=== PATIENT | male | born 1945 | race Two or more races ===

== ENCOUNTER 2022-11-24 15:33 | Inpatient (IN) | payer MEDICARE ==
[~2022-11-24] VITALS: Ht 167.6 cm; Wt 81.6 kg
[2022-11-24] MEDS ORDERED: SODIUM CHLORIDE 0.9% 1,000 ML IV ONE (16:15)
[2022-11-24 17:40] LABS: BASOPHILS % 0.5 % (0.0-2.0); HEMATOCRIT. 42.6 % (42.0-52.0); HEMOGLOBIN. 14.6 g/dL (14.0-18.0); LYMPHOCYTES % 14.2 % (20.0-50.0); MEAN CORPUSCULAR HEMOGLOBIN 32.8 pg (28.0-32.0); MEAN CORPUSCULAR VOLUME 95.5 fL (80.0-94.0); MONOCYTES % 6.8 % (2.0-8.0); NEUTROPHILS % 76.5 % (40.0-76.0); RED BLOOD CELL COUNT 4.46 mill/uL (4.7-6.1); RED CELL DISTRIBUTION WIDTH 13.8 % (11.6-14.6)
[2022-11-24 17:45] LABS: CHLORIDE 106 mEq/L (98-107)
[2022-11-24 17:46] LABS: INR 1.1; PROTHROMBIN TIME 11.4 sec (9.6-11.0)
[2022-11-24 18:00] LABS: MEAN PLATELET VOLUME 8.8 fl (7.4-10.4); PLATELET 169 x1000/uL (130-400)
[2022-11-24] MEDS ORDERED: KETOROLAC 15MG/ML VIAL IV PRN (21:15)
[2022-11-24] MEDS ORDERED: ZOLPIDEM TARTRATE 5MG TABLET PO PRN (21:15)
[2022-11-24] MEDS ORDERED: ACETAMINOPHEN 325MG TABLET PO PRN ×2 (21:15)
[2022-11-24] MEDS ORDERED: MAGNESIUM/ALUMINUM HYDROXIDE/SIMETHICONE 30ML UDC PO PRN (21:15)
[2022-11-24] MEDS ORDERED: IPRATROPIUM/ALBUTEROL 0.5-3(2.5)MG/3ML NEB NEB PRN (21:15)
[2022-11-24] MEDS ORDERED: DOCUSATE SODIUM 100MG CAPSULE PO PRN (21:15)
[2022-11-24] MEDS ORDERED: ONDANSETRON HCL 4MG/2ML INJ IV PRN (21:15)
[2022-11-24] MEDS ORDERED: GUAIFENESIN 200MG/10ML SUGAR FREE UDC PO PRN (21:15)
[2022-11-24] MEDS ORDERED: NITROGLYCERIN 0.4MG TABLET SL SL PRN (21:15)
[2022-11-24] MEDS ORDERED: IPRATROPIUM BROMIDE (0.02%) 0.5MG/2.5ML NEB HHN PRN (21:30)
[2022-11-24] MEDS ORDERED: ALBUTEROL (0.083%) 2.5MG/3ML NEB HHN PRN (21:30)
[2022-11-24 22:35] LABS: CLARITY URINE CLEAR (CLEAR); COLOR URINE YELLOW (YELLOW); KETONES URINE TRACE (NEGATIVE); LEUKOCYTE ESTERASE URINE NEGATIVE (NEGATIVE); NITRITE URINE NEGATIVE (NEGATIVE); OCCULT BLOOD URINE NEGATIVE (NEGATIVE); PH URINE 6.5 (4.5-8.0); PROTEIN URINE NEGATIVE (NEGATIVE); SPECIFIC GRAVITY URINE 1.021 (1.005-1.030)
[2022-11-24 22:39] LABS: CREATINE KINASE MB FRACTION 8.3 ng/mL (0.5-3.6)
[2022-11-24 22:47] LABS: ETHANOL BLOOD < 10 mg/dL; HDL CHOLESTEROL 55 mg/dL (40-59); LDL CHOLESTEROL 38 mg/dL (5-100); TOTAL IRON BINDING CAPACITY 279 ug/dL (250-450)
[2022-11-24 22:50] LABS: *AMPHETAMINES SCREEN URINE NEGATIVE (NEGATIVE); *BARBITURATES SCREEN URINE NEGATIVE (NEGATIVE); *BENZODIAZEPINES SCREEN URINE NEGATIVE (NEGATIVE); *COCAINE SCREEN URINE NEGATIVE (NEGATIVE); CANNABINOID URINE SCREEN PRESUMTIVE POSITIVE (NEGATIVE); METHADONE URINE SCREEN NEGATIVE (NEGATIVE); OPIATES URINE SCREEN NEGATIVE (NEGATIVE); PHENCYCLIDINE URINE SCREEN NEGATIVE (NEGATIVE)
[2022-11-24 22:58] LABS: FOLIC ACID (FOLATE) SERUM >20 ng/mL ng/mL (>5.38)
[2022-11-25 05:44] LABS: EOSINOPHILS % 4.9 % (0.0-5.0); HEMATOCRIT. 38.4 % (42.0-52.0); HEMOGLOBIN. 13.2 g/dL (14.0-18.0); LYMPHOCYTES % 28.2 % (20.0-50.0); MEAN CORPUSCULAR HEMOGLOBIN 32.6 pg (28.0-32.0); MEAN CORPUSCULAR VOLUME 94.9 fL (80.0-94.0); MEAN PLATELET VOLUME 8.9 fl (7.4-10.4); MONOCYTES % 7.6 % (2.0-8.0); NEUTROPHILS % 58.3 % (40.0-76.0); PLATELET 161 x1000/uL (130-400); RED BLOOD CELL COUNT 4.04 mill/uL (4.7-6.1); RED CELL DISTRIBUTION WIDTH 13.8 % (11.6-14.6)
[2022-11-25 05:46] LABS: CHLORIDE 110 mEq/L (98-107)
[2022-11-25 05:52] LABS: CREATINE KINASE MB FRACTION 8.4 ng/mL (0.5-3.6)
[2022-11-25 05:57] LABS: PHOSPHORUS 2.6 mg/dL (2.5-4.9)
[2022-11-25] MEDS: ENOXAPARIN 40MG/0.4ML SYR SUBCUT SCH (09:43)
[2022-11-25] MEDS: FAMOTIDINE 20MG TABLET PO SCH ×2 (09:44→22:05)
[2022-11-25] MEDS: CLOPIDOGREL 75MG TABLET PO SCH (09:44)
[2022-11-25 09:59] VITALS: BP 139/72
[2022-11-25 12:00] VITALS: BP 139/72
[2022-11-25 16:00] VITALS: BP 132/55
[2022-11-25] MEDS ORDERED: ATOR-2 PO (19:23)
[2022-11-25] MEDS ORDERED: ASPI-1497 PO (19:23)
[2022-11-25] MEDS ORDERED: AMLO5TAB88 PO (19:23)
[2022-11-25] MEDS ORDERED: LISI40TA13 PO (19:23)
[2022-11-25] MEDS ORDERED: TAMS-11 PO (19:23)
[2022-11-25 20:00] VITALS: BP 153/80
[2022-11-26] VITALS: BP 162/75
[2022-11-26 04:00] VITALS: BP 129/71
[2022-11-26] MEDS: CLONIDINE 0.1MG TABLET PO PRN ×2 (06:56→16:54)
[2022-11-26 08:00] VITALS: BP 157/87
[2022-11-26] MEDS: ENOXAPARIN 40MG/0.4ML SYR SUBCUT SCH (09:06)
[2022-11-26] MEDS: FAMOTIDINE 20MG TABLET PO SCH ×2 (09:06→20:44)
[2022-11-26] MEDS: CLOPIDOGREL 75MG TABLET PO SCH (09:06)
[2022-11-26 12:00] VITALS: BP 139/71
[2022-11-26 16:00] VITALS: BP 164/89
[2022-11-26 20:00] VITALS: BP 112/76
[2022-11-27] VITALS: BP 154/76
[2022-11-27 04:15] VITALS: BP 169/89
[2022-11-27] MEDS: CLONIDINE 0.1MG TABLET PO PRN (04:34)
[2022-11-27 08:00] VITALS: BP 155/87
[2022-11-27] MEDS: FAMOTIDINE 20MG TABLET PO SCH (09:48)
[2022-11-27] MEDS: CLOPIDOGREL 75MG TABLET PO SCH (09:48)
[2022-11-27] MEDS: ENOXAPARIN 40MG/0.4ML SYR SUBCUT SCH (09:48)
[2022-11-27 12:00] VITALS: BP 165/83
[2022-11-27 13:50] VITALS: BP 145/87
[2022-11-27] MEDS ORDERED: RISPERIDONE 0.5MG TABLET PO SCH (21:00)
== END 2022-11-27 14:40 | DRG 640 ==
LOC: ER 16:14 → MICUSO 20:24 → EDBEDREQSVC 20:30 → EDBEDREQ 20:30 → EDBEDREQTM 20:30 → 8WST 11-25 10:15
PROVIDERS: ADMIT Internal Medicine; ATTEND Internal Medicine
DX: E86.0 Dehydration (principal); G92.8 Other toxic encephalopathy; E86.1 Hypovolemia; R29.6 Repeated falls; I10 Essential (primary) hypertension; R62.7 Adult failure to thrive; Z20.822 Contact with and (suspected) exposure to COVID-19; R77.8 Other specified abnormalities of plasma proteins; F41.9 Anxiety disorder, unspecified; Z68.29 Body mass index [BMI] 29.0-29.9, adult; Z91.81 History of falling; Z86.73 Personal history of transient ischemic attack (TIA), and cerebral infarction without residual deficits
CPT/HCPCS: 36415; 70551; 71045; 80053; 80061; 80305; 80320; 81003; 82550; 82553; 82746; 83036; 83540; 83550; 83735; 84100; 84439; 84443; 84484; 85025; 87426; 93005; 93306; 93970; 97162; 97166; 99285; C9803; J1650; J7030; G0480